=== PATIENT | female | born 1975 | race American Indian/Alaskan Native ===

== ENCOUNTER 2019-08-14 17:50 | Emergency (ER) | payer SELFPAY ==
[2019-08-14] MEDS ORDERED: ALBUTEROL 2.5 MG/3 ML NEBU IH ONE ×2 (18:02→18:20)
[2019-08-14] MEDS ORDERED: IPRATROPIUM 0.02% NEBU 2.5 ML IH ONE ×2 (18:02→18:20)
[2019-08-14] MEDS ORDERED: methylPREDNISolone Sod Succinate 125 MG/2 ML INJ IV ONE (18:20)
[2019-08-14] MEDS ORDERED: MAGNESIUM SULFATE 2 GM/50 ML BAG IV ONE (18:20)
[2019-08-14 18:31] VITALS: BP 130/80
[2019-08-14 18:42] LABS: Basophils % (Auto) 0.9 % (0.0-1.8); Eosinophils % (Auto) 0.4 % (0.0-4.3); Hemoglobin 12.2 gm/dl (10.1-14.3); Lymphocytes # (Auto) 1.6 K/mm3 (1.2-5.4); Lymphocytes % (Auto) 42.7 % (13.4-35.0); Mean Corpuscular HGB Conc 32 % (30-34); Mean Corpuscular Volume 74 fl (79-97); Monocytes # (Auto) 0.5 K/mm3 (0.0-0.8); Monocytes % (Auto) 12.3 % (0.0-7.3); Platelet Count 233 K/mm3 (140-440); Red Blood Count 5.17 M/mm3 (3.65-5.03); Red Cell Distribution Width 18.6 % (13.2-15.2)
[2019-08-14 19:01] LABS: BUN/Creatinine Ratio 13; Blood Urea Nitrogen 13 mg/dL (7-17); Hemolysis Index 13
--- NOTE | 2019-08-14 19:35 | XRay Report ---
CHEST 1 VIEW INDICATION / CLINICAL INFORMATION: sob, cough. Dyspnea. COMPARISON: None available. FINDINGS: SUPPORT DEVICES: None. HEART / MEDIASTINUM: No significant abnormality. LUNGS / PLEURA: No significant pulmonary or pleural abnormality. No pneumothorax. ADDITIONAL FINDINGS: No significant additional findings. IMPRESSION: 1. No acute findings. Signer Name: Cornelio Ramos MD Signed: 08/14/2019 7:30 PM Workstation Name: [id number]
[2019-08-14] MEDS ORDERED: KETOROLAC 30 MG/1 ML INJ IV ONE (21:04)
--- NOTE | 2019-08-14 21:04 | Emergency Department Report ---
ED Shortness of Breath HPI - General Chief Complaint: Dyspnea/Respdistress Stated Complaint: WHEEZING Time Seen by Provider: 08/14/19 18:17 Source: patient Mode of arrival: Ambulatory Limitations: No Limitations - History of Present Illness Initial Comments: 44 yo F, hx asthma, presents to the ED w/ productive cough, wheezing, body aches x 5 days. States symptoms became worse today. Denies chest pain. MD Complaint: shortness of breath, cough -: days(s) (5) Severity: moderate Consistency: constant Improves With: nothing Worsens With: exertion, coughing Known History Of: asthma Context: recent URI Associated Symptoms: fever, cough, sputum production Treatments Prior to Arrival: none - Related Data Home Oxygen Therapy: No Previous Rx's Medication Instructions Recorded Last Taken Type Hyoscyamine Subl [Levsin Sl 0.125] 0.125 mg SL Q4HR PRN #15 tablet 11/18/14 Unknown Rx Promethazine [Phenergan] 25 mg PO Q6H PRN #10 tablet 11/18/14 Unknown Rx Albuterol Sulfate [Proventil Hfa] 2 puff IH Q4HR PRN #1 hfa.aer.ad 08/14/19 Unknown Rx Benzonatate [Tessalon Perles] 100 mg PO Q8HR PRN #20 capsule 08/14/19 Unknown Rx Naproxen [Naprosyn] 500 mg PO BID #20 tablet 08/14/19 Unknown Rx predniSONE [Deltasone] 50 mg PO QDAY #5 tab 08/14/19 Unknown Rx Allergies Allergy/AdvReac Type Severity Reaction Status Date / Time No Known Allergies Allergy Unverified 11/18/14 00:59 ED Review of Systems ROS: Stated complaint: WHEEZING Other details as noted in HPI Comment: All other systems reviewed and negative Constitutional: fever Respiratory: cough, shortness of breath, wheezing Cardiovascular: denies: chest pain Musculoskeletal: myalgia ED Past Medical Hx - Past Medical History Previous Medical History?: No - Surgical History Past Surgical History?: Yes Additional Surgical History: ,TUBAL LIGATION - Social History Smoking Status: Current Every Day Smoker Substance Use Type: Alcohol - Medications Home Medications: Home Medications Medication Instructions Recorded Confirmed Last Taken Type Hyoscyamine Subl [Levsin Sl 0.125] 0.125 mg SL Q4HR PRN #15 tablet 11/18/14 Unknown Rx Promethazine [Phenergan] 25 mg PO Q6H PRN #10 tablet 11/18/14 Unknown Rx Albuterol Sulfate [Proventil Hfa] 2 puff IH Q4HR PRN #1 hfa.aer.ad 08/14/19 Unknown Rx Benzonatate [Tessalon Perles] 100 mg PO Q8HR PRN #20 capsule 08/14/19 Unknown Rx Naproxen [Naprosyn] 500 mg PO BID #20 tablet 08/14/19 Unknown Rx predniSONE [Deltasone] 50 mg PO QDAY #5 tab 08/14/19 Unknown Rx ED Physical Exam - General Limitations: No Limitations General appearance: alert - Head Head exam: Present: atraumatic, normocephalic - Eye Eye exam: Present: normal appearance, EOMI - ENT ENT exam: Present: mucous membranes moist - Neck Neck exam: Present: normal inspection - Respiratory Respiratory exam: Present: respiratory distress, wheezes - Cardiovascular Cardiovascular Exam: Present: normal rhythm, tachycardia - GI/Abdominal GI/Abdominal exam: Present: soft. Absent: distended, tenderness - Extremities Exam Extremities exam: Present: normal inspection - Neurological Exam Neurological exam: Present: alert, oriented X3 - Psychiatric Psychiatric exam: Present: normal affect, normal mood - Skin Skin exam: Present: warm, dry, intact, normal color ED Course Vital Signs 08/14/19 08/14/19 08/14/19 18:22 18:29 18:35 Temperature 97.1 F L 97.2 F L Pulse Rate 120 H 112 H Pulse Rate [ 112 H Anterior Bilateral Throughout] Respiratory 26 H 24 Rate Respiratory 23 Rate [Anterior Bilateral Throughout] Blood Pressure 122/100 130/80 [Left] O2 Sat by Pulse 100 Oximetry 08/14/19 21:41 Temperature Pulse Rate 87 Pulse Rate [ Anterior Bilateral Throughout] Respiratory 17 Rate Respiratory Rate [Anterior Bilateral Throughout] Blood Pressure [Left] O2 Sat by Pulse 100 Oximetry ED Medical Decision Making - Lab Data Result diagrams: 08/14/19 18:29 08/14/19 18:29 - Radiology Data Radiology results: report reviewed, image reviewed - Medical Decision Making Pt w/ acute asthma exacerbation. IV magnesium and solumedrol given. Albuterol/ atrovent nebs administered. Labs unremarkable, CXR normal. Pt feeling much better at this time. No longer in resp distress, O2 sats normal. Pt feel ok for d/c home at this time. Prescriptions given. Outpt f/u advised. Return precautions given. - Differential Diagnosis asthma, pneumonia, pulm edema Critical Care Time: Yes Critical care time in (mins) excluding proc time.: 35 Critical care attestation.: If time is entered above; I have spent that time in minutes in the direct care of this critically ill patient, excluding procedure time. Critical Care Time: 35 minutes ED Disposition Clinical Impression: Asthma with acute exacerbation, Acute respiratory distress Disposition: TO HOME OR SELFCARE Is pt being admited?: No Condition: Stable Instructions: Asthma (ED) Prescriptions: predniSONE [Deltasone] 50 mg PO QDAY #5 tab Naproxen [Naprosyn] 500 mg PO BID #20 tablet Albuterol Sulfate [Proventil Hfa] 2 puff IH Q4HR PRN #1 hfa.aer.ad PRN Reason: Wheezing Benzonatate [Tessalon Perles] 100 mg PO Q8HR PRN #20 capsule PRN Reason: Cough Referrals: PRIMARY MD ROLF [Primary Care Provider] - 3-5 Days CAROLYN VIVEROS MD [Staff Physician] - 3-5 Days [facility] [Provider Group] - 3-5 Days [facility] [Outside] - 3-5 Days Time of Disposition: 21:05
== END 2019-08-14 21:41 | disposition home or self-care (01) ==
LOC: ED 17:50
DX: R06.03 Acute respiratory distress (principal); J45.901 Unspecified asthma with (acute) exacerbation; F17.200 Nicotine dependence, unspecified, uncomplicated; Z98.51 Tubal ligation status; Z79.899 Other long term (current) drug therapy
CPT/HCPCS: 36415; 71045; 80048; 85025; 94640; 96365; 96375; 99284; J1885; J2930; J3475; 94644